=== PATIENT | female | born 1985 | race Caucasian/White ===

== ENCOUNTER → 2018-03-26 | Outpatient (CLI) | payer BC ==
--- NOTE | 2018-03-26 16:49 | Diagnostic Imaging Report ---
INDICATION: Abdominal pain. Evaluate for stone. COMPARISON: None. FINDINGS: A single frontal view of the abdomen was obtained. There is a moderate amount of stool in the colon. The bowel gas pattern is otherwise unremarkable. No discrete urinary tract calcification is suspected although portions of the kidneys and ureters are obscured by overlying bowel gas and stool. There is no acute osseous abnormality. IMPRESSION: No acute abnormality is demonstrated. There is a moderate amount of stool in the colon. Dictated by: Dictated on workstation # [id number]
--- NOTE | 2018-03-26 17:53 | Diagnostic Imaging Report ---
PROCEDURE: US gallbladder. TECHNIQUE: Multiple real-time grayscale images were obtained over the right upper quadrant in various projections. INDICATION: Right upper quadrant abdominal pain. COMPARISON: None. FINDINGS: The size and echogenicity of the liver is normal. There is no mass or intrahepatic biliary duct dilatation. Common bile duct is nonvisualized due to overlying bowel gas. The pancreas, IVC and aorta are poorly visualized as well due to bowel gas artifact. There is no obvious mass. The right kidney is normal. The gallbladder is somewhat contracted and contains small polyps; although, due to contraction cholelithiasis is not excluded. There is no cholecystitis or ascites. IMPRESSION: 1. Contracted gallbladder containing what is likely tiny, 2 mm, polyps; although, due to contraction cholecystolithiasis is not excluded. Consider nonemergent HIDA scan. 2. No sonographic evidence of cholecystitis. Dictated by: Dictated on workstation # [id number]
== END ==
LOC: RAD 15:30
PROVIDERS: ATTEND Nurse Practitioner Family
DX: R10.11 Right upper quadrant pain (principal); M54.5 Low back pain
CPT/HCPCS: 74018; 76705

== ENCOUNTER → 2018-03-28 | Outpatient (CLI) | payer BC ==
[~2018-03-28] MED LIST: CATHETER FLUSH 10 ML SYR IV PRN
--- NOTE | 2018-03-28 12:11 | Diagnostic Imaging Report ---
INDICATION: Right upper quadrant pain. TECHNIQUE: Patient was administered 5.4 mCi technetium 99m Choletec intravenously and imaging over the abdomen was performed. After 60 minutes, patient ingested one can of Ensure and gallbladder ejection fraction was calculated. FINDINGS: There is homogeneous uptake of activity by the liver. Prompt excretion of activity into the gallbladder and common duct is seen with passage into the small bowel. Gallbladder ejection fraction is normal at 44%. IMPRESSION: Normal HIDA scan and gallbladder ejection fraction. Dictated by: Dictated on workstation # [id number]
== END ==
LOC: CARD 09:35
PROVIDERS: ATTEND Nurse Practitioner Family
DX: R10.11 Right upper quadrant pain (principal); K82.4 Cholesterolosis of gallbladder
CPT/HCPCS: 78227